=== PATIENT | female | born 1975 | race Caucasian/White ===

== ENCOUNTER 2016-12-19 15:53 | Emergency (ER) | payer OTHER ==
[2016-12-19 15:58] VITALS: BP 132/78; PULSE 71; RESP 18; TEMP 98.2; O2SAT 95
== END 2016-12-19 16:07 | disposition left against medical advice (07) ==
DX: Z53.21 Procedure and treatment not carried out due to patient leaving prior to being seen by health care provider (principal)

== ENCOUNTER 2016-12-19 16:20 | Emergency (ER) | payer OTHER ==
[2016-12-19 16:28] VITALS: TEMP 98.2
[2016-12-19] MEDS ORDERED: KETOROLAC 30 MG/1 ML SDV IM ONE (17:04)
--- NOTE | 2016-12-19 17:11 | EDPHY ---
H & P Time Seen by Provider: 12/19/16 16:30 HPI/ROS: HPI Neck pain. 41-year-old female by private vehicle. She reports that she woke up from sleep approximately 1 week ago with right-sided lower posterior neck pain. No history of trauma. She reports the pain is somewhat worse with turning her head to the right. She reports that she was seen at an urgent care a couple of days later. She was prescribed a Medrol Dosepak as well as [place]. She has had no relief from this medication. She then was seen at the [facility]. An MRI was not ordered at that time. She was given a muscle relaxer which she cannot name. An MRI was apparently scheduled for this coming Thursday. She is here complaining of continued pain as well as what she describes as tingling down her entire right arm. She is requesting an MRI of the cervical spine. ROS: Constitutional: No fever, no chills. No weakness. ENT: No sore throat. No nasal congestion or rhinorrhea. Respiratory: No cough. No shortness of breath. Cardiac: No chest pain, no palpitations. Gastrointestinal: No abdominal pain, no vomiting, no diarrhea. Genitourinary: No hematuria. No dysuria or increased frequency with urination. Musculoskeletal: No back pain. As above. Skin: No rashes. Neurological: No headache. No focal weakness or altered sensation. As above. Past medical history: , DVT. Social history: Nonsmoker. Here by herself. Denies alcohol. Physical Exam: General Appearance: Alert, mildly anxious. This patient is responding to questions appropriately and in full sentences. This patient appears well- hydrated and well-nourished. Eyes: Pupils equal and round no pallor or injection. No lid edema, erythema or injection. ENT, Mouth: Mucous membranes are moist. The pharyngeal tissues are unremarkable. No edema or swelling. No asymmetry suggestive of abscess. No erythema or exudates. Neck: Focal tenderness on palpation mid to proximal trapezius superior posterior aspect paraspinal at the level of C7 and T1. No soft tissue swelling , erythema, warmth, ecchymosis. No rash. No midline cervical, thoracic spine tenderness on palpation. She is neurologically intact in all myotomes in dermatomes of the bilateral upper extremities. She has some exacerbation of her pain with turning her head to the right. Neurological: Motor sensory function is grossly intact. Cranial nerves are normal. Gait is normal. Skin: Warm and dry, no rashes. Musculoskeletal: As above. Extremities are symmetrical. All joints range without pain or impingement. Psychiatric: No agitation. No depression. Database: EKG: Imaging: MRI cervical spine without contrast: Significant for a C7-C6 right-sided disc protrusion. Degenerative changes are noted on multiple levels. Please see official report for further details. Results were discussed with staff radiologist Dr. Obey Ayala. Procedures: Emergency department course: The patient does not have any contraindications to ibuprofen. No renal failure. No history of allergy or peptic ulcer disease. She will be given 60 mg of IM Toradol. A lidocaine patch will be placed over the affected area as described above. She is very adamant about getting her MRI done in the emergency department. This has been ordered. 6:50 p.m., patient re-evaluated. Results of MRI of cervical spine discussed with her. Neurosurgery paged discussed treatment options. Patient's repeat neurologic exam is unchanged from above. 7:10 p.m., spoke with on-call neurosurgeon, Dr. Mccollum. Results of MRI discussed. Neurologic exam discussed. Plan will be to have the patient seen in Dr. Mccollum clinic on Thursday for further evaluation and management. Dr. Mccollum recommended high-dose ibuprofen as well as a muscle relaxer until seen in his clinic. 7:15 p.m., patient re-evaluated. Follow-up plan discussed with her. She endorses. She does feel comfortable going home at this time. She states she feels better after above Toradol. She will contact Dr. Mccollum on Thursday morning for her follow-up appointment at that time. Return to emergency department precautions were discussed with her. All of her questions were answered. She was discharged in good condition. Differential Diagnosis: The differential diagnosis on this patient includes but is not limited to cervical disc herniation with radiculopathy, torticollis, trapezius muscle spasm. Cervical disc herniation, cervical radiculopathy, spinal cord compression syndrome, fracture, subluxation, dislocation unlikely. This represents a partial list of diagnoses considered. These considerations are based on history, physical exam, past history, reassessment and diagnostic testing. Smoking Status: Never smoked Constitutional: Initial Vital Signs Temperature (C) 36.8 C 12/19/16 16:23 Heart Rate 58 L 12/19/16 16:23 Respiratory Rate 18 12/19/16 16:23 Blood Pressure 119/81 H 12/19/16 16:23 O2 Sat (%) 99 12/19/16 16:23 O2 Delivery Mode Room Air Allergies/Adverse Reactions: No Known Allergies Allergy (Unverified 04/06/09 07:44) Home Medications: Medication Instructions Recorded Fioricet 50-325-40 Tab 04/13/09 Coumadin 04/28/09 Dicloxacillin Sodium 04/28/09 Cyclobenzaprine [Flexeril 10 MG 10 mg PO TID #14 tab 12/19/16 (*)] Medical Decision Making - Data Points Medications Given: Discontinued Medications Ketorolac Tromethamine (Toradol) 60 mg IM EDNOW ONE Stop: 12/19/16 17:05 Last Admin: 12/19/16 17:27 Dose: 60 mg Departure - Departure Disposition: Home, Routine, Self-Care Clinical Impression: Neck pain, Cervical herniated disc Condition: Good Instructions: Cyclobenzaprine (By mouth), Cervical Disc Herniation (ED) Additional Instructions: Read and follow provided instructions. Follow-up with Dr. Mccollum of the neurosurgical spine clinic on Thursday as discussed. Call his office at 9:00 a.m.. He has your information. Take muscle relaxer medication as prescribed. Ibuprofen dosin mg every 6 hours with meals for the next 3 days only. Start taking this medication tomorrow morning. Return to the emergency department for worsening symptoms, worsening pain, loss of sensation, weakness in your right upper extremity or other serious concerns. Referrals: Cedric Mccollum MD [Medical Doctor] - As per Instructions Prescriptions: Cyclobenzaprine [Flexeril 10 MG (*)] 10 mg PO TID #14 tab
[2016-12-19 19:59] VITALS: BP 121/64; PULSE 84; RESP 16; O2SAT 95
== END 2016-12-19 19:58 | disposition home or self-care (01) ==
DX: M50.20 Other cervical disc displacement, unspecified cervical region (principal); Z79.01 Long term (current) use of anticoagulants
CPT/HCPCS: J1885

== ENCOUNTER 2016-12-25 07:36 | Day surgery (SDC) | payer OTHER ==
[2016-12-25] MEDS ORDERED: FLUMAZENIL 0.5 MG/5 ML MDV IVP ONE (07:45)
[2016-12-25] MEDS ORDERED: MIDAZOLAM 2 MG/2 ML VIAL ONE (07:45)
[2016-12-25] MEDS ORDERED: NALOXONE HCL 0.4 MG/ML INJ ONE (07:45)
[2016-12-25] MEDS ORDERED: fentaNYL 100 MCG/2 ML INJ ONE (07:46)
[2016-12-25] MEDS ORDERED: NS 1,000 ML IV SCH (09:00)
[2016-12-25] MEDS ORDERED: ONDANSETRON 4 MG/2 ML VIAL ONE (09:56)
[2016-12-25] MEDS ORDERED: IOPAMIDOL (ISOVUE-M 300) 15 ML VIAL ONE (10:19)
[2016-12-25] MEDS ORDERED: TRIAMCINOLONE ACETONIDE 200 MG/5 ML MDV IM ONE (10:19)
[2016-12-25 11:22] VITALS: BP 96/66; RESP 18; O2SAT 96
== END 2016-12-25 11:30 | disposition home or self-care (01) ==
LOC: FIMAGING 07:36
PROVIDERS: ATTEND Neurological Surgery
PROC: 3E0S3BZ Introduction of Anesthetic Agent into Epidural Space, Percutaneous Approach (ICD-10-PCS; principal; 2016-12-25 10:49)
PROC: 3E0S33Z Introduction of Anti-inflammatory into Epidural Space, Percutaneous Approach (ICD-10-PCS; principal; 2016-12-25 10:49)
DX: M54.12 Radiculopathy, cervical region (principal); M50.30 Other cervical disc degeneration, unspecified cervical region
CPT/HCPCS: J2250; J2310; J2405; J3010; J3301; Q9967

== ENCOUNTER → 2017-03-27 | Outpatient (CLI) | payer OTHER | LOC: FIMAGING 13:19 | PROVIDERS: ATTEND Family Medicine | DX: Z12.31 Encounter for screening mammogram for malignant neoplasm of breast (principal) | CPT/HCPCS: G0202 ==

== ENCOUNTER → 2018-08-26 | Outpatient (CLI) | payer OTHER | LOC: FIMAGING 13:49 | PROVIDERS: ATTEND Family Medicine | DX: Z12.31 Encounter for screening mammogram for malignant neoplasm of breast (principal) ==